=== PATIENT | female | born 1950 | race Caucasian/White ===

== ENCOUNTER 2021-04-30 10:03 | Emergency (ER) | payer MEDICARE ==
[2021-04-30 10:10] VITALS: RESP 18
--- NOTE | 2021-04-30 10:41 | ED ---
ENT HPI - General Chief complaint: ENT Stated complaint: trouble swallowing Time Seen by Provider: 04/30/21 10:16 Source: patient Mode of arrival: ambulatory Limitations: no limitations - History of Present Illness Initial comments: Patient is a 70-year-old female presenting to the emergency Department with complaints of a sore throat for the last few days. She states the pain has been progressing and she is having difficulty swallowing secondary to the pain. She denies any fevers or chills, she has got some mild ear pain, no chest pain or shortness of breath, no nausea or vomiting or abdominal pain. She has been able to tolerate liquids and foods just painful. She admits to history of hemangioma removal on the left side of her neck approximately 10 years ago. She's had no difficulty since. She has no further complaints at this time. Upon arrival to the ER her vitals are stable. - Related Data Previous Rx's Medication Instructions Recorded predniSONE [Deltasone] 20 mg PO BID 5 Days #10 tab 04/30/21 Allergies Allergy/AdvReac Type Severity Reaction Status Date / Time Penicillins Allergy Unknown Verified 04/30/21 10:10 Sulfa (Sulfonamide Allergy Unknown Verified 04/30/21 10:10 Antibiotics) codeine AdvReac Nausea & Verified 04/30/21 10:10 Vomiting morphine AdvReac Nausea & Verified 04/30/21 10:10 Vomiting Review of Systems ROS Statement: Those systems with pertinent positive or pertinent negative responses have been documented in the HPI. ROS Other: All systems not noted in ROS Statement are negative. Past Medical History Past Medical History: Hyperlipidemia, Hypertension, Thyroid Disorder History of Any Multi-Drug Resistant Organisms: None Reported Past Surgical History: Section, Hysterectomy Additional Past Surgical History / Comment(s): hemangioma neck, Past Psychological History: Depression Smoking Status: Never smoker Past Alcohol Use History: Daily Past Drug Use History: Marijuana General Exam - General Exam Comments Initial Comments: GENERAL: Patient is well-developed and well-nourished. Patient is nontoxic and in no acute distress. HEAD: Atraumatic, normocephalic. EYES: Pupils equal round and reactive to light, extraocular movements intact, sclera anicteric, conjunctiva are normal. Eyelids were unremarkable. ENT: TMs normal, nares patent, oropharynx clear without exudates. Moist mucous membranes. Mild postnasal drip. NECK: Normal range of motion, supple without lymphadenopathy or JVD. LUNGS: Unlabored respirations. Breath sounds clear to auscultation bilaterally and equal. No wheezes rales or rhonchi. HEART: Regular rate and rhythm without murmurs, rubs or gallops. ABDOMEN: Soft, nontender, normoactive bowel sounds. No guarding, no rebound. No masses appreciated. : Deferred MUSCULOSKELETAL: Normal extremities with adequate strength and normal range of motion, no pitting or edema. No clubbing or cyanosis. NEUROLOGICAL: Patient is alert and oriented x 3. Normal speech, normal gait. PSYCH: Normal mood, normal affect. SKIN: Warm, Dry, normal turgor, no rashes or lesions noted. Limitations: no limitations Course Vital Signs 04/30/21 04/30/21 04/30/21 10:06 11:22 12:40 Temperature 98.2 F 98.1 F Pulse Rate 69 63 66 Respiratory 18 18 18 Rate Blood Pressure 153/72 144/67 148/74 O2 Sat by Pulse 96 100 99 Oximetry Medical Decision Making - Medical Decision Making Patient is a 70-year-old female presenting with a sore throat 4 days. She is c omplaining of having trouble swelling secondary to the discomfort. No fevers, her vitals are stable. Her exam reveals no acute findings. Soft tissue neck x- ray reveals no alarming symptoms. I discussed the patient is most likely viral in nature, I see no evidence for infection no fevers. Patient will be given a course of steroids, and she will follow-up with her PCP. She is in agreement with this plan of care and is stable for discharge. Case discussed with Dr. Guerrero. Disposition Clinical Impression: Sore throat Disposition: HOME SELF-CARE Condition: Stable Instructions (If sedation given, give patient instructions): Viral Syndrome (ED) Additional Instructions: Please return to the Emergency Department if symptoms worsen or any other concerns. Take steroids as prescribed. Please follow-up with your primary care physician as discussed. Prescriptions: predniSONE [Deltasone] 20 mg PO BID 5 Days #10 tab Is patient prescribed a controlled substance at d/c from ED?: No Referrals: Nonstaff,Physician [Primary Care Provider] - 1-2 days Time of Disposition: 12:33
[2021-04-30 11:25] VITALS: TEMP 98.1
[2021-04-30 12:43] VITALS: BP 148/74; PULSE 66
--- NOTE | 2021-04-30 12:48 | XR ---
EXAMINATION TYPE: XR soft tissue neck DATE OF EXAM: 04/30/2021 COMPARISON: None HISTORY: 70-year-old female sore throat, trouble swallowing TECHNIQUE: AP and lateral views FINDINGS: No abnormal narrowing of the subglottic airway. Epiglottis is slightly prominent, suspected to be obl iqued in positioning. No nasopharyngeal or oropharyngeal airway narrowing. No prevertebral soft tissu e swelling. Mild anterior endplate spondylosis C5-C7 levels. No retained radiopaque foreign body seen . IMPRESSION: 1. Slight prominence to the epiglottis suspected to be positional rather than secondary to inflammati on. Correlate clinically to exclude any potential symptoms of epiglottitis. Direct visualization of i ndicated. 2. Otherwise, no prevertebral soft tissue swelling, airway compromise, or subglottic airway narrowing .
== END 2021-04-30 12:43 | disposition home or self-care (01) ==
LOC: EC 10:03
DX: J02.9 Acute pharyngitis, unspecified (principal); E78.5 Hyperlipidemia, unspecified; I10 Essential (primary) hypertension; E07.9 Disorder of thyroid, unspecified; Z90.710 Acquired absence of both cervix and uterus; F32.9 Major depressive disorder, single episode, unspecified; F12.90 Cannabis use, unspecified, uncomplicated
CPT/HCPCS: 70360